=== PATIENT | female | born 1990 ===

== ENCOUNTER 2025-02-15 18:12 | Inpatient (IN) | payer MEDICARE, MEDICAID ==
[~2025-02-15] VITALS: Ht 157.5 cm; Wt 79.4 kg
[2025-02-15 18:38] LABS: PLATELET COUNT (AUTO) 199 K/uL (150-450); RED BLOOD CELL COUNT(AUTO) 4.58 MIL/uL (4.00-5.20); RED CELL DISTRIBUTION WIDTH 12.4 % (11.5-14.5); WHITE BLOOD COUNT (AUTO) 7.7 K/uL (4.5-11.0)
[2025-02-15 18:45] LABS: CALCIUM, TOTAL 9.2 mg/dL (8.8-10.5); CREATININE 0.54 mg/dL (0.60-1.30); GLOMERULAR FILTR. RATE CALC > 60 mL/min (>60); GLUCOSE,RANDOM 89 mg/dL (70-110); SODIUM SERUM 140 mmol/L (136-145); UREA NITROGEN, BLOOD 10 mg/dL (7-18)
[2025-02-15 20:00] LABS: COVID AG,FIA SOURCE NASAL SWAB
[2025-02-15 20:11] LABS: PH,URINE DRUG SCREEN 5.5 (5.0-8.0)
[2025-02-15 20:17] LABS: ALCOHOL, URINE DRUG SCREEN NEGATIVE (NEGATIVE); AMPHET/METH SCREEN,URINE NEGATIVE (NEGATIVE); BARBITURATE SCREEN, URINE NEGATIVE (NEGATIVE); CANNABINOID SCREEN,URINE NEGATIVE (NEGATIVE); COCAINE SCREEN,URINE NEGATIVE (NEGATIVE); METHADONE SCREEN, URINE NEGATIVE (NEGATIVE)
[2025-02-15 20:25] LABS: SARS-COV2 (COVID) ANTIGEN,FIA Negative (Negative)
[2025-02-15] MEDS ORDERED: GUAN1TAB20 PO (22:17)
[2025-02-15] MEDS ORDERED: VALP250C48 PO (22:17)
[2025-02-15] MEDS ORDERED: QUET200T PO (22:17)
[2025-02-15] MEDS ORDERED: MULT-1366 PO (22:17)
[2025-02-15] MEDS ORDERED: CLOZ100T61 PO (22:17)
[2025-02-15] MEDS ORDERED: CLON0.1T PO (22:17)
[2025-02-15] MEDS ORDERED: METF-1211 PO (22:17)
[2025-02-15] MEDS ORDERED: QUET25TA PO (22:17)
[2025-02-15] MEDS ORDERED: LEVO25TA9 PO (22:17)
[2025-02-15] MEDS ORDERED: CHOL25TA4 PO (22:17)
[2025-02-15 23:28] VITALS: BP 120/80; PULSE 85; RESP 18; TEMP 97.7; O2SAT 98
[2025-02-15 23:31] VITALS: BP 120/80; PULSE 85; RESP 18; TEMP 97.7; O2SAT 98
[2025-02-16] MEDS: ZOLPIDEM TARTRATE 10 MG TABLET PO PRN (02:00)
[2025-02-16] MEDS ORDERED: PNEUMOCOCCAL VACCINE POLYVALENT 0.5 ML SYRINGE [PPSV23] IM. ONE (02:30)
[2025-02-16 05:40] LABS: GLUCOMETER DEV NAME(LOC) BV2X.3; GLUCOSE,POINT OF CARE 75 MG/DL (70-110)
[2025-02-16] MEDS ORDERED: IBUPROFEN 400 MG TABLET PO PRN (06:30)
[2025-02-16] MEDS ORDERED: NICOTINE 14 MG/24 HOUR PATCH TD PRN (06:30)
[2025-02-16] MEDS ORDERED: MAG HYDROX/ALUMINUM HYD/SIMETH ES 30 ML SUSPENSION UDCUP PO PRN (06:30)
[2025-02-16] MEDS ORDERED: LOPERAMIDE HCL 2 MG CAPSULE PO PRN (06:30)
[2025-02-16] MEDS ORDERED: GuaiFENesin/D-METHORPHAN [SUGAR-FREE] 200-20MG/10 ML SYRUP UDCUP PO PRN (06:30)
[2025-02-16] MEDS ORDERED: ONDANSETRON 4 MG TABLET PO PRN (06:30)
[2025-02-16] MEDS ORDERED: DOCUSATE SODIUM 100 MG CAPSULE PO PRN (06:30)
[2025-02-16] MEDS ORDERED: ACETAMINOPHEN 325 MG TABLET PO PRN (06:30)
[2025-02-16] MEDS ORDERED: MAGNESIUM HYDROXIDE SUSPENSION 30 ML UDCUP PO PRN (06:30)
[2025-02-16] MEDS ORDERED: ALBUTEROL SULFATE HFA 90 MCG/PUFF 8 GM INHALER IH PRN (06:30)
[2025-02-16] MEDS ORDERED: PETROLATUM,WHITE 28 GM JELLY TP PRN (06:30)
[2025-02-16] MEDS ORDERED: NICOTINE POLACRILEX 4 MG GUM CHEW PRN (07:15)
[2025-02-16] MEDS: LEVOTHYROXINE SODIUM 25 MCG TABLET PO SCH (07:28)
[2025-02-16 08:00] VITALS: BP 112/79; PULSE 111; RESP 18; TEMP 98.4; O2SAT 96
[2025-02-16] MEDS: CHOLECALCIFEROL (VIT D3) 1,000 UNITS [25 MCG] TABLET PO SCH (09:26)
[2025-02-16] MEDS ORDERED: LORazepam 2 MG/ML VIAL ONE (15:38)
[2025-02-16] MEDS: LORazepam 2 MG/ML VIAL IM ONE (15:57)
[2025-02-16] MEDS: VALPROIC ACID 250 MG/5 ML SOLUTION UDCUP PO SCH (21:48)
[2025-02-17 01:07] LABS: HEPATITIS C AB (EIA) Non Reactive (Non Reactive)
[2025-02-17] MEDS ORDERED: LEVOTHYROXINE SODIUM 25 MCG TABLET PO SCH (06:30)
[2025-02-17 08:31] VITALS: BP 110/75; PULSE 89; RESP 17; TEMP 97.9; O2SAT 97
[2025-02-17] MEDS: VALPROIC ACID 250 MG/5 ML SOLUTION UDCUP PO SCH (09:43)
[2025-02-17 10:07] LABS: CHOL/HDL RATIO 2.7 (3.9-5.7); LDL CHOL (CALC.) 62.0 mg/dL (0-130)
[2025-02-17] MEDS: NICOTINE POLACRILEX 2 MG LOZENGE PO PRN (17:00)
[2025-02-17 20:06] VITALS: BP 111/78; PULSE 68; RESP 17; TEMP 98.1; O2SAT 95
[2025-02-18 08:25] VITALS: BP 126/71; PULSE 102; RESP 18; TEMP 97.9; O2SAT 97
[2025-02-18 20:18] VITALS: BP 115/79; PULSE 86; RESP 18; TEMP 97.7; O2SAT 97
[2025-02-19 08:23] VITALS: BP 122/82; PULSE 100; RESP 17; TEMP 98.6; O2SAT 98
[2025-02-19 20:42] VITALS: BP 123/89; PULSE 78; RESP 20; TEMP 98.8; O2SAT 99
[2025-02-20 08:22] VITALS: BP 132/68; PULSE 100; RESP 17; TEMP 98.2; O2SAT 97
[2025-02-20] MEDS ORDERED: CLOZ25TA52 PO (16:40)
[2025-02-20] MEDS ORDERED: GUAN1TAB63 PO (16:40)
[2025-02-20 20:16] VITALS: BP 109/83; PULSE 87; RESP 18; TEMP 97.5; O2SAT 95
[2025-02-21 08:49] VITALS: BP 109/70; PULSE 79; RESP 18; TEMP 98.1; O2SAT 97
[2025-02-21] MEDS ORDERED: METF-1211 PO (12:03)
[2025-02-21] MEDS ORDERED: CLON0.2T PO (12:06)
[2025-02-21] MEDS ORDERED: VALP250C48 PO (12:07)
== END 2025-02-21 13:06 | DRG 885 ==
LOC: EDBD 18:12 → EMS 18:12 → B2X 22:44
PROVIDERS: ADMIT Psychiatry & Neurology Child & Adolescent Psychiatry; ATTEND Psychiatry & Neurology Child & Adolescent Psychiatry
PROC: GZ58ZZZ Individual Psychotherapy, Cognitive-Behavioral (ICD-10-PCS; principal; 2025-02-16)
PROC: GZ56ZZZ Individual Psychotherapy, Supportive (ICD-10-PCS; 2025-02-16)
DX: F20.9 Schizophrenia, unspecified (principal); E11.9 Type 2 diabetes mellitus without complications; E03.9 Hypothyroidism, unspecified; I10 Essential (primary) hypertension; E66.9 Obesity, unspecified; Z68.32 Body mass index [BMI] 32.0-32.9, adult; E55.9 Vitamin D deficiency, unspecified; Z20.822 Contact with and (suspected) exposure to COVID-19; Z88.0 Allergy status to penicillin
CPT/HCPCS: 80048; 80061; 80164; 80307; 82962; 83036; 84443; 84703; 85025; 86803; 87081; 87340; 96372; 99285; G0480; J1200; J1630; J2060